=== PATIENT | male | born 1990 | race Caucasian/White ===

== ENCOUNTER 2021-01-21 14:52 | Emergency (ER) | payer SELFPAY ==
[2021-01-21] MEDS ORDERED: Tetracaine HCl/PF 0.5% 4 ML Bottle EYEBOTH ONE (14:59)
[2021-01-21] MEDS ORDERED: Erythromycin Base 0.5% Ophth Oint 1 GM Tube EYERT ONE (15:05)
--- NOTE | 2021-01-21 15:25 | EDM.PDOC ---
ED HPI GENERAL MEDICAL PROBLEM - General Chief Complaint: Eye Problems Stated Complaint: MEDICAL CLEARANCE AND R EYE INJURY Time Seen by Provider: 01/21/21 14:57 Source of Information: Reports: Patient History Limitations: Reports: No Limitations - History of Present Illness INITIAL COMMENTS - FREE TEXT/NARRATIVE: HISTORY AND PHYSICAL: History of present illness: Patient is a 30-year-old male who presents to the emergency room by police with complaints of foreign body in his right eye. He states 3 days ago he was welding when a piece of metal hit him in the eye. He and his significant other have been trying to remove it with a tweezers at home and have been unsuccessful. Today he was placed in custody of law enforcement and is here for medical clearance. Patient denies any fever, chills, headache, change in vision, syncope or near syncope. He does not wear glasses or contact lenses. No pain with ocular movement. Denies any chest pain, back pain, shortness of breath or cough. Denies any GI or symptoms. Patient has been eating and drinking appropriately. Review of systems: As per history of present illness and below otherwise all systems reviewed and negative. Past medical history: As per history of present illness and as reviewed below otherwise noncontributory. Surgical history: As per history of present illness and as reviewed below otherwise noncontributory. Social history: See social history for further information Family history: As per history of present illness and as reviewed below otherwise noncontributory. Physical exam: General: Well developed and well nourished. Alert and orientated x 3. Answering questions appropriately. Nontoxic in appearance and in no acute distress. Vital signs are stable and have been reviewed by me. Nursing notes were reviewed. Accompanied by law enforcement. HEENT: Atraumatic, normocephalic, pupils equal and reactive bilaterally, negative for conjunctival pallor or scleral icterus, pinpoint foreign body noted at the 5 o'clock position on the iris of right eye. Mucous membranes moist, trachea midline. No drooling or trismus noted. No meningeal signs. No hot potato voice noted. Lungs: Clear to auscultation, breath sounds equal bilaterally. Normal work of breathing, no accessory muscles used. Heart: S1S2, regular rate and rhythm without overt murmur Abdomen: Soft, nondistended, nontender. Negative for masses or costovertebral tenderness. Skin: Intact, warm, dry. No lesions or rashes noted. Hematologic: No petechiae or purpra. Mucosa appropriate color and normal nail bed color and refill. Extremities: Ambulatory, moves all extremities per self without difficulty or deficits. Neurovascular unremarkable. Neuro: Awake, alert, oriented. Cranial nerves II through XII unremarkable. Ce rebellum unremarkable. Motor and sensory unremarkable throughout. Exam nonfocal. Psychiatric: Mood and affect are appropriate. Normal thought process. Answering questions appropriately. Notes: Patient is a 30-year-old male who presents to the emergency room with law enforcement for medical clearance. Patient states he and his girlfriend have been trying to remove a piece of metal from his eye over the past 2 days with a tweezer. "She got a big chunk out" but still is able to visualize a pinpoint piece of metal stuck in the iris. He has no change in vision or pain with eye movement although states it is irritating. Tetracaine ophthalmic drops was used for comfort. Unable to remove the foreign body. I did talk with Dr. Crum, typing teacher on-call about this patient. He states due to the recent and repetitive attempts of foreign body removal he would like the patient put on Ocuflox 4 times daily and he could follow-up with him in 48 hours. Law enforcement has no specific concerns for today's ER visit other than the eye foreign body. I have talked with the patient and entertainment lawyer about today's ER visit, in addition to providing specific details for plan of care. Reassessment at the time of disposition demonstrates that the patient is in no acute distress. The patient is stable for discharge, counseling was provided and we discussed in great detail signs and symptoms that would prompt them to return to the Emergency Department. Medication, follow up and supportive care measures were reviewed and discussed. Voices understanding and is agreeable to plan of care. Denies any further questions or concerns at this time. Diagnostics: Visual acuity Therapeutics: Tdap, tetracaine, erythromycin ointment Prescription: Ocuflox Impression: Encounter for medical screening FB in right eye Plan: 1. Today your physical exam and vital signs are within normal limits. Please do the Ocuflox as directed. If you continue to have discomfort and able to vi sualize the foreign body after the next 48 hours, you can follow-up with Dr. Crum the typing teacher at [facility]. 2. We encourage you to follow up with your primary care provider and/or recom mended specialist in the next few days for re-evaluation and further care/management. 3. If you should develop symptoms or feel the need to be evaluated in the emergency department - please feel free to return or call 911 if necessary. Definitive disposition and diagnosis as appropriate pending reevaluation and review of above. right eye Pain Score (Numeric/FACES): 7 - Related Data Allergies Allergy/AdvReac Type Severity Reaction Status Date / Time No Known Allergies Allergy Verified 01/21/21 15:19 Home Meds: Home Meds . [No Known Home Meds] 01/21/21 [History] Ofloxacin [Ocuflox 0.3% Ophth Soln] 2 drop EYERT QID 5 Days #1 bottle 01/21/21 [Rx] Past Medical History HEENT History: Reports: None Cardiovascular History: Reports: None Respiratory History: Reports: None Gastrointestinal History: Reports: None Genitourinary History: Reports: None Musculoskeletal History: Reports: None Neurological History: Reports: None Psychiatric History: Reports: None Endocrine/Metabolic History: Reports: None Hematologic History: Reports: None Immunologic History: Reports: None Oncologic (Cancer) History: Reports: None Dermatologic History: Reports: None - Infectious Disease History Infectious Disease History: Reports: None - Past Surgical History Head Surgeries/Procedures: Reports: None HEENT Surgical History: Reports: None Cardiovascular Surgical History: Reports: None Respiratory Surgical History: Reports: None GI Surgical History: Reports: None Male Surgical History: Reports: None Endocrine Surgical History: Reports: None Neurological Surgical History: Reports: None Musculoskeletal Surgical History: Reports: None Oncologic Surgical History: Reports: None Dermatological Surgical History: Reports: None Social & Family History - Family History Family Medical History: No Pertinent Family History - Tobacco Use Tobacco Use Status *Q: Current Every Day Tobacco User Years of Tobacco use: 15 Packs/Tins Daily: 1 - Caffeine Use Caffeine Use: Reports: None - Recreational Drug Use Recreational Drug Use: No ED ROS GENERAL - Review of Systems Review Of Systems: Comprehensive ROS is negative, except as noted in HPI. ED EXAM GENERAL W FULL EYE - Physical Exam Exam: See Below (See dictation) Course - Vital Signs Last Recorded V/S: Last Vital Signs Temp 96.9 F 01/21/21 15:00 Pulse 95 01/21/21 15:00 Resp 18 01/21/21 15:00 BP 162/105 H 01/21/21 15:00 Pulse Ox 99 01/21/21 15:00 - Orders/Labs/Meds Orders: Active Orders 24 hr Category Date Time Status Vision Test [RC] ASDIRECTED Care 01/21/21 14:59 Active Meds: Medications Discontinued Medications Generic Name Dose Route Start Last Admin Trade Name Tere PRN Reason Stop Dose Admin Erythromycin 1 gm 01/21/21 15:05 01/21/21 15:22 Erythromycin Base 0.5% Ophth Oint 1 Gm Tube EYERT 01/21/21 15:06 1 dose ONETIME ONE Administration Tetracaine HCl 1 ml 01/21/21 14:59 01/21/21 15:22 Tetracaine Hcl/Pf 0.5% 4 Ml Bottle EYEBOTH 01/21/21 15:00 1 drop ASDIRECTED ONE Administration Departure - Departure Time of Disposition: 15:24 Disposition: Home, Self-Care 01 Clinical Impression: Encounter for medical screening examination Eye foreign body Qualifiers: Encounter type: initial encounter Laterality: right Qualified Code(s): T15.91XA - Foreign body on external eye, part unspecified, right eye, initial encounter - Discharge Information Prescriptions: Ofloxacin [Ocuflox 0.3% Ophth Soln] 2 drop EYERT QID 5 Days #1 bottle Instructions: Eye Foreign Body, Llcu-is-Lswe Referrals: PCP,None [Primary Care Provider] - Forms: ED Department Discharge Additional Instructions: The following information is given to patients seen in the emergency department who are being discharged to home. This information is to outline your options for follow-up care. We provide all patients seen in our emergency department with a follow-up referral. The need for follow-up, as well as the timing and circumstances, are variable depending upon the specifics of your emergency department visit. If you don't have a primary care physician on staff, we will provide you with a referral. We always advise you to contact your personal physician following an emergency department visit to inform them of the circumstance of the visit and for follow-up with them and/or the need for any referrals to a consulting specialist. The emergency department will also refer you to a specialist when appropriate. This referral assures that you have the opportunity for follow-up care with a specialist. All of these measure are taken in an effort to provide you with optimal care, which includes your follow-up. Under all circumstances we always encourage you to contact your private physician who remains a resource for coordinating your care. When calling for follow-up care, please make the office aware that this follow-up is from your recent emergency room visit. If for any reason you are refused follow-up, please contact the [facility] Emergency Department at and asked to speak to the emergency department charge nurse. [facility] [address] [place] [id number] [address] Thank you for choosing the [facility] emergency department in [place] for your medical needs today. It was a pleasure caring for you. Today you were seen in the emergency department for eye foreign body. 1. Today your physical exam and vital signs are within normal limits. Please do the Ocuflox as directed. If you continue to have discomfort and able to visualize the foreign body after the next 48 hours, you can follow-up with Dr. Crum the typing teacher at [facility]. 2. We encourage you to follow up with your primary care provider and/or recommended specialist in the next few days for re-evaluation and further care/management. 3. If you should develop symptoms or feel the need to be evaluated in the emergency department - please feel free to return or call 911 if necessary. Sepsis Event Note (ED) - Evaluation Sepsis Screening Result: No Definite Risk - Focused Exam Vital Signs: Vital Signs Temp Pulse Resp BP Pulse Ox 01/21/21 15:00 96.9 F 95 18 162/105 H 99 - My Orders Last 24 Hours: My Active Orders 01/21/21 14:59 Vision Test [RC] ASDIRECTED - Assessment/Plan Last 24 Hours: My Active Orders 01/21/21 14:59 Vision Test [RC] ASDIRECTED
[2021-01-21] MEDS ORDERED: Diphtheria,Pertussis(Acell),Tetanus Vaccine 0.5 ML Syringe ONE (15:30)
[2021-01-21] MEDS ORDERED: Diphtheria,Pertussis(Acell),Tetanus Vaccine 0.5 ML Syringe IM ONE (15:30)
== END 2021-01-21 15:59 | disposition home or self-care (01) ==
LOC: MW.ED 14:52
DX: T15.91XA Foreign body on external eye, part unspecified, right eye, initial encounter (principal); Z23 Encounter for immunization; Z72.0 Tobacco use
CPT/HCPCS: 90471; 90715; 99283; A9270